=== PATIENT | male | born 1990 | race Caucasian/White ===

== ENCOUNTER 2018-01-16 09:39 | Emergency (ER) | payer OTHER ==
--- NOTE | 2018-01-16 10:25 | ER Document Report ---
ED Medical Screen (RME) - General Chief Complaint: Ankle Pain Stated Complaint: ANKLE PAIN Time Seen by Provider: 01/16/18 10:23 Notes: Patient is complaining of postoperative pain in the left foot. He had previous injuries of that foot a couple of years ago and then reinjured it earlier this year. He underwent surgery at [facility] for torn ligaments in his foot and ankle on this December 30, approximately 2 weeks ago. He has had expected postoperative pain, but over the past 3-4 days the pain is increasing over the lateral aspect of his foot and is also associated with numbness. Patient called to the [facility] and was told that the orthopedic clinic is not open until Thursday. He also called the ER and was told that there would be a 3-hour wait to be seen and so he came here. Physical Exam - Vital signs Vitals: Temp Pulse Resp BP Pulse Ox 98.8 F 100 18 141/75 H 97 01/16/18 09:42 01/16/18 09:42 01/16/18 09:42 01/16/18 09:42 01/16/18 09:42 Course - Vital Signs Vital signs: Temp Pulse Resp BP Pulse Ox 98.8 F 100 18 141/75 H 97 01/16/18 09:42 01/16/18 09:42 01/16/18 09:42 01/16/18 09:42 01/16/18 09:42 Doctor's Discharge - Discharge Referrals: ALIZA MIMS MD [Primary Care Provider] - Follow up as needed
--- NOTE | 2018-01-16 11:23 | ER Document Report ---
HPI - HPI Time Seen by Provider: 01/16/18 10:23 Pain Level: 5 Notes: Patient is a 27-year-old male who presents to the ED 2-1/2 weeks postop from left ankle surgery and planning of increased postop pain over the last 3-4 days. Patient states that he was on pain medicine, but ran out a few days ago and his pain started getting worse. Patient states that he had a performed by podiatry through [facility]. The pain is primarily to his left lateral foot just distal to where the surgery took place. Patient states that he has associated numbness to the left lateral foot as well. He was instructed not to take off his boot or his dressing for 5 weeks so he is not visualized the area. He has been remaining nonweightbearing on that ankle. Denies any drug allergies or IV drug use. No other concerns or complaints. Patient states that he was unable to get in touch with his surgeon because of the weekend. Denies any headache, fever, URI, sore throat, chest pain, palpitations, syncope , cough, shortness of breath, wheeze, dyspnea, abdominal pain, nausea/vomiting/ diarrhea, urinary retention, dysuria, hematuria, loss of control of bowel or bladder, saddle anesthesia, muscle paralysis/weakness, or rash. - ROS Systems Reviewed and Negative: Yes All other systems reviewed and negative - DERM Skin Color: Normal Past Medical History - Social History Smoking Status: Never Smoker Chew tobacco use (# tins/day): No Frequency of alcohol use: None Drug Abuse: None Family History: Reviewed & Not Pertinent Patient has suicidal ideation: No Patient has homicidal ideation: No Renal/ Medical History: Denies: Hx Peritoneal Dialysis Past Surgical History: Reports: Hx Orthopedic Surgery Vertical Provider Document - CONSTITUTIONAL Agree With Documented VS: Yes Notes: PHYSICAL EXAMINATION: GENERAL: Well-appearing, well-nourished and in no acute distress. LUNGS: Breath sounds clear to auscultation bilaterally and equal. No wheezes rales or rhonchi. HEART: Regular rate and rhythm without murmurs, rubs, gallops. Musculoskeletal: Lt foot/ankle: ROM not assessed at the ankle due to the recent surgery. There is no evidence or warmth, erythema, ecchymosis, wound dehiscence, abscess, purulence, streaks, or ulceration. Pt has reproducible tenderness to light palp lateral foot. Dec sensation to palp distally. The dressing was not tightly bound and his cap refill is appropriate with 2+ pulses to PT/DP. No bony tenderness of the foot/ankle. Achilles intact. No calf or lower leg tenderness/asymmetry. The surgical wound appears well with suture intact otherwise. Extremities: No cyanosis, clubbing, or edema b/l. Peripheral pulses 2+. Capillary refill less than 3 seconds. NEUROLOGICAL: see above. PSYCH: Normal mood, normal affect. SKIN: Warm, Dry, normal turgor, no rashes or lesions noted. Course - Re-evaluation Re-evalutation: 01/16/18 11:13 I did consult with Orthopedics at [facility] who, based on my H&P, believe this to be benign and probable nerve etiology. We did review DVT possibility, but pt does not have any calf/leg pain, LE asymmetry, or calf tenderness on exam. Recommends pain medication and recheck with his surgeon Thursday. 01/16/18 11:25 I did review with Dr. Donahue who is in agreement with dispo/plan as well: Patient is an afebrile, well-hydrated, 27-year-old male who presents to the ED for postop pain to his left ankle which I suspect to be probable nerve involvement. Vitals are acceptable otherwise without any significant tachycardia, tachypnea, or hypoxia. PE is otherwise unremarkable for any DVT or septic joint. Patient is nontoxic-appearing and is tolerating p.o. without difficulty. He does not have any signs of infection that would lead to blood work being obtained. He also does not have any signs of DVT to indicate for an ultrasound at this time. I did review DVT with the patient who will watch for any development of s/s. No further labs or imaging warranted at this time. Low suspicion for any sepsis, meningitis, severe dehydration, respiratory compromise, DVT, septic joint, or other systemic emergent condition at this time. Patient is aware that condition can change from initial presentation and he needs to monitor symptoms closely and seek medical attention with any acute changes. I will send him home with a prescription for pain medication. Recheck with your surgeon on Thursday. Return to the ED with any worsening/ concerning symptoms otherwise as reviewed and discharge. Patient is in agreement. - Vital Signs Vital signs: Temp Pulse Resp BP Pulse Ox 98.8 F 100 18 141/75 H 97 01/16/18 09:42 01/16/18 09:42 01/16/18 09:42 01/16/18 09:42 01/16/18 09:42 Discharge - Discharge Clinical Impression: Left foot pain, Post-op pain Condition: Stable Disposition: HOME, SELF-CARE Additional Instructions: Rest, Ice, Elevation Use splint as directed Tylenol/ibuprofen as needed F/u with your Surgeon on Thursday Return to the ED with any worsening symptoms and/or development of fever, headache, chest pain, palpitations, syncope, shortness of breath, trouble breathing, abdominal pain, n/v/d, muscle weakness/paralysis, numbness/tingling, swelling, redness, calf pain, leg swelling, or other worsening symptoms that are concerning to you. Prescriptions: Oxycodone HCl/Acetaminophen [Percocet 5-325 mg Tablet] 1 tab PO TID #10 tab Forms: Elevated Blood Pressure Referrals: [facility] [Provider Group] - 01/18/18
[2018-01-16 11:47] VITALS: BP 123/75
== END 2018-01-16 11:52 | disposition home or self-care (01) ==
LOC: ER 09:39
DX: G89.18 Other acute postprocedural pain (principal); M25.572 Pain in left ankle and joints of left foot; M79.672 Pain in left foot; R20.0 Anesthesia of skin
CPT/HCPCS: 99283

== ENCOUNTER 2018-01-25 11:08 | Emergency (ER) | payer OTHER ==
[2018-01-25 11:17] VITALS: BP 111/90
--- NOTE | 2018-01-25 12:04 | ER Document Report ---
HPI - HPI Patient complains to provider of: Left foot pain Time Seen by Provider: 01/25/18 11:55 Onset: Other - 12/30/17 Pain Level: 5 Context: Patient presents emergency department with complaints of left foot pain. Patient reports he had surgery done on 3 ligaments on his ankle at [place] 12/30/17. He reports he has had pain since that time. He has been to his back to his orthopedics and this morning he went to see 2 providers regarding the pain. They told him to take Tylenol. Patient called the advice line and they told him he could come to our emergency department. He denies trauma. No other c/o such as fever vomiting Associated Symptoms: None Exacerbated by: Denies Relieved by: Denies Similar symptoms previously: Yes Recently seen / treated by doctor: Yes Past Medical History - General Information source: Patient - Social History Smoking Status: Unknown if Ever Smoked Cigarette use (# per day): No Frequency of alcohol use: None Drug Abuse: None Occupation: [employer] [place] Family History: Reviewed & Not Pertinent - Medical History Medical History: Negative Renal/ Medical History: Denies: Hx Peritoneal Dialysis Past Surgical History: Reports: Hx Orthopedic Surgery Vertical Provider Document - CONSTITUTIONAL Agree With Documented VS: Yes Exam Limitations: No Limitations General Appearance: WD/WN, No Apparent Distress - INFECTION CONTROL TRAVEL OUTSIDE OF THE [place] IN LAST 30 DAYS: No - HEENT HEENT: Atraumatic, Normocephalic - NECK Neck: Supple - RESPIRATORY Respiratory: No Respiratory Distress - CARDIOVASCULAR Cardiovascular: Regular Rate - MUSCULOSKELETAL/EXTREMETIES Musculoskeletal/Extremeties: Tender - LEFT LATERAL FOOT TTP, NO WARMTH, NO ERYTHEMA, NO SWELLING, GOOD CAP REFILL, GOOD PEDAL PULSE, NO OBVIOUS DEFORMITY, SUTURE SITE BENIGN LOOKING - NEURO Level of Consciousness: Awake, Alert, Appropriate Motor/Sensory: No Motor Deficit - DERM Integumentary: Warm, Dry Adult Front & Back Diagram: 1 - C/O PAIN Course - Re-evaluation Re-evalutation: 01/25/18 12:09 Surgical site looks benign. No signs or symptoms of infection. Patient has been evaluated twice this morning by provider. He will be discharged with Tylenol with codeine. Patient was instructed on Tylenol with codeine. He reports he taken the medication before without problem. Patient was also instructed on the importance of follow-up with his primary care and orthopedics and pain management. He verbalized understanding. Dictation of this chart was performed using voice recognition software; therefore, there may be some unintended grammatical errors. - Vital Signs Vital signs: Temp Pulse Resp BP Pulse Ox 98.5 F 73 16 111/90 H 99 01/25/18 11:16 01/25/18 11:16 01/25/18 11:16 01/25/18 11:16 01/25/18 11:16 Discharge - Discharge Clinical Impression: left post surgical foot pain Condition: Stable Disposition: HOME, SELF-CARE Instructions: Acetaminophen with Codeine ([facility]), Pain Management, Pain Control without Medication ([facility]) Additional Instructions: *You have been evaluated for left postsurgical foot pain *Maintain boot *Rest *Follow up with orthopedics and pain management as scheduled *Take medication as prescribed *Return to ED for worsening condition, changes, needs Prescriptions: Acetaminophen with Codeine [Tylenol #3 Tablet] 1 each PO Q4HP PRN #15 tablet PRN Reason: Referrals: ALIZA MIMS MD [Primary Care Provider] - Follow up in 3-5 days
== END 2018-01-25 12:07 | disposition home or self-care (01) ==
LOC: ER 11:08
DX: G89.18 Other acute postprocedural pain (principal); M79.672 Pain in left foot; Z98.890 Other specified postprocedural states
CPT/HCPCS: 99283